=== PATIENT | male | born 1960 | race Caucasian/White ===

== ENCOUNTER → 2024-03-06 | Outpatient (CLI) | payer SELFPAY, OTHER ==
--- NOTE | 2024-03-06 07:09 | CT_ITS ---
CT RIGHT LOWER EXTREMITY WITH 3-D IMAGING CLINICAL INDICATION: Templating for right TKA TECHNIQUE: Axial CT images of the right lower extremity (including right hip, right knee, and right ankle) was performed without IV contrast material. Coronal and sagittal reformats were provided. RADIATION DOSAGE (If Supplied By Facility): CTDIvol = ( 20.10 ) mGy, DLP = ( 2981.65 ) mGycm COMPARISON: Right knee radiographs dated 02/11/2024 FINDINGS: Bones: There is minimal degenerative arthrosis of the right hip joint with tiny marginal osteophyte formation and subchondral cyst formation in the superolateral aspect of the right acetabulum. There is severe degenerative arthrosis of the medial femorotibial compartment of the right knee with [id number]-[id number], marginal osteophyte formation, subchondral sclerosis/cyst formation, and small foci of intra-articular air. There is mild degenerative arthrosis of the patellofemoral and lateral femorotibial compartments of the right knee with marginal osteophyte formation. Normal visualized right ankle. Osseous structures are intact without evidence of fracture or dislocation. No lytic or blastic osseous masses. Soft Tissues: There is a small right knee joint effusion. The deep soft tissue structures are unremarkable. The superficial soft tissues are unremarkable without evidence of edema, hematoma, or foreign body. CT/Extremity Lower without Contra IMPRESSION: Tricompartment degenerative arthrosis of the right knee joint, most severe in the medial femorotibial compartment. Small right knee joint effusion. Electronically Signed: Dawood Merchant MD at 15:52 EDT ,
== END | disposition home or self-care (01) ==
PROVIDERS: Referring Provider Orthopaedic Surgery; Visit Provider Orthopaedic Surgery
DX: M17.11 Unilateral primary osteoarthritis, right knee (principal)
CPT/HCPCS: 73700

== ENCOUNTER 2024-03-18 05:15 | Day surgery (SDC) | payer SELFPAY, OTHER ==
--- NOTE | 2024-03-06 06:57 | EKG12_ITS ---
Test Reason : PRE-OP Blood Pressure : / mmHG Vent. Rate : 065 BPM Atrial Rate : 065 BPM P-R Int : 146 ms QRS Dur : 074 ms QT Int : 378 ms P-R-T Axes : 049 029 026 degrees QTc Int : 393 ms Normal sinus rhythm Normal ECG Confirmed by PAULA MUNSON, HELLEN ([id number]), newspaper editor managing FREDY ALAN ([id number]) on 03/10/2024 10:20:06 AM Referred By: Philippe Everett Confirmed By:SARMAD MITCHELL MD
[2024-03-06 08:33] LABS: Absolute Lymphocyte Count 1.76 X10^3/uL (0.83-4.51); Absolute Neutrophil Count 1.6 X10^3/uL (2.0-7.7); Basophil# 0.03 X10^3/uL; Basophil% 0.8 % (0-1); Eosinophil# 0.09 X10^3/uL; Eosinophils% 2.3 % (0-5); Hematocrit 35.6 % (40-54); Lymphocyte # 1.76 X10^3/ul (0.83-4.51); Mean Corp Hgb Conc 33.7 g/dL (32-36); Mean Corpuscular Hgb 30.6 pg (27.0-32.0); Mean Corpuscular Volume 90.8 fL (80-94); Mean Platelet Vol. 12.9 fl (6.2-12.0); Monocyte# 0.51 X10^3/uL; Monocyte% 12.8 % (0-10); NRBC Flagged by Analyzer 0 % (0-5); Neutrophil % 39.8 % (47-70); Platelet Count 136 K/mm3 (150-450); RBC Distribution Width CV 13.5 % (11.6-14.6); RBC Distribution Width SD 45.1 fl (35.1-43.9); Red Blood Count 3.92 M/mm3 (4.6-6.2)
[2024-03-06 08:42] LABS: International Normalized Ratio 1.2; Prothrombin Time (Protime)PT. 14.7 SECONDS (11.7-14.9)
[2024-03-06 08:43] LABS: Partial Thromboplast Time 32.5 Seconds (24.1-36.2)
[2024-03-06 08:56] LABS: Anion Gap 7 (5-15); BUN 22 mg/dL (7-18); BUN/Creat Ratio 21.4 RATIO (10-20); Calcium,Total 8.7 mg/dL (8.5-10.1); Chloride 108 mmol/L (98-107); Creatinine, Serum 1.03 mg/dL (0.70-1.30); EST Glomerular Filtration Rate 77 mL/min (>60); Est Glom Filt Rate - Afr Amer 94 mL/min (>60); Glucose 98 mg/dL (74-106); Magnesium 1.9 mg/dL (1.6-2.6); Potassium 4.4 mmol/L (3.5-5.1); Sodium Level 142 mmol/L (136-145)
[2024-03-07 05:07] LABS: Fructosamine 209 umol/L (0-285)
[2024-03-18] VITALS (10 sets, daily range): BP systolic 105–174; BP diastolic 61–87; PULSE 65–80; RESP 16–92; TEMP 36.2–36.9; O2SAT 16–99; BMI 39.2
--- NOTE | 2024-03-18 | KNEE_PTH ---
PATIENT: FILIPE CEVALLOS [place] [facility] [place][id number] AGE/SX: 64/M ROOM: RE03/18/[address]: Dr. Philippe Everett DO : 1960 BED: DIS: 03/18/2024 SPEC #: [id number] RECD: 03/18/24 12:25 STATUS: MARK COLBY #: [id number] JEFFERY: 03/18/24 00:[address]: Philippe Everett DEPT: SURGICAL PATHOLOGY RECD BY: Gianfranco Rosario ENTERED: 03/18/24 12:25 SP TYPE: TOTAL KNEE OTHR DR: Maris Valdivia, SETTLEMENT WORKER-C Tissues: Knee, NOS Procedures: Decalcification bone/plaque Surgery Specimen Level IV HEADER OPERATION: ERAS, total knee replacement robotic arm assist PRE-OP DIAGNOSIS: Osteoarthritis of right knee TISSUE SUBMITTED: Right knee MICROSCOPIC DIAGNOSIS Bone and soft tissue, right knee, total knee replacement/resection: Pieces of bone with degenerative osteoarthritic changes. Fragments of fibrocartilaginous tissue with reactive changes. ADAM: 03/21/2024 MICROSCOPIC DESCRIPTION Slides are reviewed. GROSS DESCRIPTION Received is one container designated bone and soft tissue right knee. The specimen consists of multiple fragments of heller-yellow bone measuring in aggregate 11.0 x 11.0 x 3.0 cm. Also present in the specimen container are multiple fragments of yellow-white soft tissue predominantly consists of fibrocartilaginous tissue measuring in aggregate 7.5 x 4.5 x 2.0 cm. A number of bony fragments contain articular surfaces consistent with tibial plateau and femoral condyle and displaying prominent osteophyte formation, eburnation and bone erosion. Diesel Bus Mechanic sections are submitted in two cassettes as follows: 1 - soft tissue, 2 - bone after decalcification. / ADAM/ 03/18/24 TC:5 CPT: 49879, 00857
[2024-03-18 06:13] LABS: Bedside Glucose 96 mg/dL (74-106)
[2024-03-18] MEDS: Lactated Ringers 1,000 ML 15 ML IV (06:25)
[2024-03-18] MEDS: Magnesium 2 GM for ERAS IV (06:26)
[2024-03-18] MEDS: Celecoxib 200 MG Capsule 400 MG PO (06:28)
[2024-03-18] MEDS: Gabapentin 600 MG Tablet PO (06:28)
[2024-03-18] MEDS: Acetaminophen 500 MG Tablet 1000 MG PO (06:28)
[2024-03-18] MEDS: Scopolamine 1mg/72hr Patch 1 PATCH TD (06:28)
--- NOTE | 2024-03-18 07:18 | PCM.HP.BLA ---
History and Physical Date of Admission: 03/18/24 [facility] [address] [place] [address] OFFICE VISIT Date of Service: 02/22/24 MR#: [id number] Acct: [id number] Name: FILIPE CEVALLOS Rep #: [id number] : 1960 Provider: Dr. Philippe Everett DO Age/Sex: 64/M Location: [facility] [place].RAPHAEL Status: Signed Intake Vital Signs 02/06/2410:12 02/21/2411:24 Height 5 ft 10 in 5 ft 10 in Weight: 274 lb 6 oz 275 lb 4 oz BMI 39.3 39.4 Intake Visit Reasons: RIGHT KNEE Accompanied by: Is patient in pain?: Yes (when walking ) Pain scale (1-10): 8 Allergies No Known Allergies Allergy (Unverified 02/22/24 11:24) Medications divalproex 250 mg tablet,delayed release 250 mg PO BID 07/30/23 [History Confirmed 02/11/24] lisinopril 20 mg-hydrochlorothiazide 12.5 mg tablet 1 tab PO QDAY 02/11/24 [History Confirmed 02/11/24] PFSH Medical History Muscle strain of right lower leg Social History household members: spouse and children Smoking Status: Never smoker alcohol intake: never HPI RIGHT KNEE Details: This documentation accurately reflects the service provided and the decisions made by me, Dr. Philippe Everett, 02/22/24 0909. Part of today?s visit was documented by Lacey MELÉNDEZ, acting as scribe. FILIPE CEVALLOS is a 64 year old M here today for right knee pain. Patient states when he walks on it his pain level is a 8/10. Patient states his knee is worse and he states it is time to do something about his pain. Patient states he is tired of limping. Patient states its his whole knee that hurts him. Patient isn't using ice or heat. Patient takes Ibuprofen as needed for his pain. Patient had a cortisone shot one time in his knee 2-3 years ago a doctor in [place] gave it to him for free. He states that id affects ADLs especially just standing, walking, and getting up from seated position. He states that he did have an incident where he was at work and his knee locked up Ortho Exam General General: Yes no acute distress Neurologic: Yes alert and Yes oriented x3 Psychologic: Yes reasonable and appropriate Right Knee Skin/Wound: No erythema, No ecchymosis and Yes swelling Knee ROM: Yes ROM-Extension -20 to 0 (-30) and Yes ROM-Flexion 0-140 (72) Examination: Yes Med jt line tenderness and Yes Lat jt line tenderness Stability: NML: Valgus 0, NML: Valgus 30, NML: Varus 0 and NML: Varus 30 Patella Translation: 1 Apprehension with Lateral Translation: No Patella Grind: Yes KNEE: has flexion contracture has swelling in lower leg up to tibial tubercle bilaterally 2/4 pedal pulse Left Knee Patella Translation: 1 Head: Normocephalic Atraumatic Chest: symmetrical rise, non-labored breathing, no audible wheeze Abdomen: no guarding, non-rigid Supplemental Info 02/11/2024 x-ray right knee advanced medial compartment arthrosis degenerative changes noted lateral patellofemoral compartment also Coding Level of Care Code Off vis,est,level 3 Diagnoses Seizure disorder G40.909 Primary osteoarthritis of right knee M17.11 Osteoarthritis type: primary Obesity E66.9 Obesity type: due to excess calories Body mass index: BMI 39.0-39.9 Assessment and Plan Assessment and Plan (1) Seizure disorder: Status: Acute (2) Osteoarthritis of right knee: Status: Acute Qualifiers: Osteoarthritis type: primary Qualified Code(s): M17.11 - Unilateral primary osteoarthritis, right knee (3) Obesity: Status: Acute Qualifiers: Obesity type: due to excess calories Body mass index: BMI 39.0-39.9 Plan Educated the patient about the anatomy of the knee and etiology of his pain. Spoke with the patient about having knee osteoarthritis. X-rays were reviewed. There is no obvious fracture, dislocation, or lucency noted. Spoke with patient that he has bone on bone of the medial knee. Spoke with patient that he also has a significant flexion contracture of the knee which increases the risk of postoperative stiffness. Also spoke with patient about dental work before and after having a TKA. Spoke with patient that their is a concern for a TKA with the stiffness that the patient has and could potentially get worse after the surgery. Discussed with patient that his treatment options are do nothing, injections, physical therapy, or a TKA. Patient states that he would like to proceed with the left knee TKA. Risks, benefits and alternatives of surgery reviewed including but not limited to bleeding, infection, nerve, artery and/or tissue damage, fracture, VTE, mechanical feel of the knee, continued pain, stiffness and expected post-operative course. I did explain to him that after his knee replacement the goal would be for him to continue to lose weight as he is able to perform more exercises to extend the life of his knee replacement. At this point patient does wish to proceed with iovera procedure He would also like to know the lee of the total procedure for the knee replacement and the iovera He needs a medical clearance we will tentatively schedule this for March [address] does [address] a CT scan medical clearance we can tentatively schedule this for same-day surgery however we will consult with the primary care physician due to his history of seizures if they feel be more appropriate for him to spend the night 02/22/24 1224 <Electronically signed by Philippe Everett DO> Date Philippe Everett DO I have examined the patient and the H&P has been reviewed. There are no clinical changes since date of exam. Cosigner Signature: Date (if applicable)
[2024-03-18] MEDS: Cefazolin 3 GM in 0.9% Normal Saline (100mL Bag) 100 ML IV (08:03)
[2024-03-18] MEDS: TXA 1000mg in NS100 100ml (IVPB at Incision) 660 MG IV (08:08)
[2024-03-18] MEDS: dexAMETHasone 10 MG/ML Vial IV (08:13)
[2024-03-18] MEDS: TXA 1000mg in NS100 100ml (IVPB at Closure) 660 MG IV (08:53)
[2024-03-18] MEDS: Lactated Ringers 1,000 ML 125 ML IV (09:30)
[2024-03-18] MEDS: Bupivacaine 0.5% PF 10 ML VIAL (09:41)
[2024-03-18] MEDS: 0.9% Normal Saline (Pres. free 10 ML Vial (09:41)
[2024-03-18] MEDS: dexAMETHasone 4 MG/ML Vial (09:41)
[2024-03-18] MEDS: Epinephrine (1 mg/ml) 1 MG/ML VIAL (09:41)
--- NOTE | 2024-03-18 10:26 | OP.PCM_ITS ---
Operative Report Date of Procedure: 03/18/24 Preoperative diagnosis: Right knee DJD Postoperative diagnosis: Same Procedure: Right total knee arthroplasty CT guided Robotic Assisted Implant: Elizabeth triathlon press fit, femoral component size 4, tibial baseplate size 5, asymmetric patella size 38, polyethylene X3 size 9 CS Anesthesia: Spinal with adductor canal block Tourniquet time: 12 minutes at 300 mmHg Complications: None Condition: Stable to PACU Estimated blood loss: 175 cc Safety Compliance Specialist Sid Freed. My physician res habilitation assistant was a vital part of this case. He was important in appropriate retraction during the case, and protection of soft tissues during procedure. His intimate knowledge of the case and my steps aided in safe and expedient completion of the procedure as well as appropriate position of the extremity during the case. He was also vital in assisting with closure under my direct supervision. Indication for procedure: This is a 64-year-old male with with long standing degenerative joint disease of the knee and a 25 degree flexion contracture and significant varus deformity who has failed conservative treatment and wished to proceed with elective total knee arthroplasty. Risk benefits and alternatives were reviewed including; risk of bleeding, infection, nerve artery and tissue damage, continued pain, postoperative stiffness, venous thromboembolism, need for postoperative rehabilitation, mechanical feel to the knee, and expected postoperative course. The pre- operative CT and templating was performed with component sizing. Procedure: The patient was met in the preoperative holding area. The operative extremity was identified by both patient and physician and was marked. Patient was met by anesthesia. An adductor canal block was placed by anesthesia postoperatively the patient was brought back to the operating room on a wheeled cart and transferred to the operating table in the supine position. Anesthesia was started. A well-padded tourniquet was placed on the operative extremity. The patient was prepped and draped in the usual sterile fashion. A timeout was called to ensure the proper patient procedure and extremity were being contemplated. An esmarch was used to exsanguinate the extremity. The tourniquet was inflated. A 10 blade scalpel was used to make a midline incision down through the skin and subcutaneous tissue. Skin retractors placed. Bovie and Aquamantis were used to perform meticulous hemostasis. full-thickness flaps were elevated medial and lateral along the joint capsule. A deep blade scalpel was used to perform a medial parapatellar arthrotomy. The knee was brought to full extension. A bovie was used to release the soft tissues off the most proximal aspect of the medial tibial plateau, a three-quarter inch curved osteotome was also used in this process. The infrapatellar fat pad was excised. The suprapatellar fat pad was excised partially anteriorolateraly and portion the anterioromedial pad was elevated from the femur. At this point our intra- articular femoral array was placed at a 45 degree angle proximal and posterior to the medial epicondyle. femoral checkpoint was placed at this time. Our tibial array was placed greater than 1 hands breath below the incision at a 20 degree angle stab incisions were made with a 15 blade scalpel and pins were placed and attached to the tibial array , tibial checkpoint was placed in the proximal tibial metaphysis. Tourniquet was let down. At this point registration etienne were taken throughout the knee . Once the knee was registered we then tensioned the medial and lateral ligaments in extension and 90 degrees of flexion. We then used these numbers to adjust our components within parameters to balance the knee in both flexion and extension once this was done on our monitor we then proceeded with using the robotic arm to make our tibial plateau cut, anterior and posterior chamfer and distal femur cuts. we removed the cut fragments with the use of a bovie and Ale, we did use a lamina university librarian to insure we visualized and removed all posterior osteophytes and at this time also used the Aquamantis on the posterior joint capsule. we then trialed and achieved the desired plan with a well-balanced knee. we used the green probe to trisha the corresponding tibial rotation based on our CT template. Lug holes were drilled in the femur the tibia preparation was completed with the appropriate sized base plate pinned based on previous rotation trisha. An appropriate sized fin punch was used on the tibia and 4 corner drill was used for the press fit component and the patella was prepared by first using a caliper to ensure sufficient bone stock and a patellar reamer to remove the desired amount of bone. lug holes drilled for an asymmetric poly. We then brought the knee through range of motion with excellent patellar tracking. We thoroughly irrigated the knee. Trial components were removed a posterior capsular injection was preformed with our standard cocktail. In addition the aqua Mantis was also used to aid in hemostasis. Betadine rinse was allowed to sit and washed out completely. Components were press-fit into place. Aricept rinse was then used followed by several more liters of irrigation after it was allowed to sit. The joint capsule was closed with #1 Ethibond [id number] in the upper part of the arthrotomy and #1 Vicryl in the lower part of the arthrotomy. , Followed by 2-0 Vicryl in the subcutaneous tissues with leona in the skin. Arrays and checkpoints were removed prior to closure all counts were correct stab incisions were closed with a staple standard dressing in the form of Mepilex AG for the main incision and a small Mepilex over the pin holes. Thigh-high AMOR hose applied over top of dressing. Patient tolerated the procedure well and was directed to PACU in stable condition . There were no intraoperative complications.
--- NOTE | 2024-03-18 10:28 | DCINST_ITS ---
Discharge Instructions Diet Discharge Diet: No restrictions Activity Weight Bearing Status: Weight bearing as tolerated Dressing / Incision Call your doctor if you observe: Shortness of breath and Chest pain Additional Dressing/Incision Instructions:: Ice and elevate lower extremities 2 weeks while not ambulating. Ambulation is encouraged. Weight bearing as tolerated. Use assistive devise for stability. Encourage FULL knee extension and flexion 1 time EVERY time you get up and down and MULTIPLE times per day. No showering until 72 hours after surgery. Begin showering postop day #3. Remove the dressing prior to shower and gently wash with warm water and antibacterial soap then pat dry and place abdominal pad (or plain gauze) and AMOR hose over top. This is to be done daily. Do not submerge for 3 weeks. If not showering daily after the initial 72 hours then you must clean incision and change dressing daily. Do not allow animals near the incision area. Keep clean. Follow anti-coagulation recommendations as prescribed. Do not take any NSAIDs while on blood thinner. Do not take any additional narcotic pain medication other than what was prescribed on your surgery day without discussing with physician. Narcotic medication can be addictive. Do not drink alcohol while taking narcotics. Supplement narcotic prescription with acetaminophen 1000 mg 4 times a day. Start physical therapy. If you are not currently scheduled for physical therapy or you are unsure of appointment time please call office [facility] to arrange. Call Dr. Everett with any concerns. Follow Up Care Please Follow Up With: Philippe Everett DO When: 2 weeks Test Results: Test results from this visit will be discussed in further detail at your follow- up appointment, if applicable. Discharge Plan Admission Primary Reason for Your Visit: Right total knee arthroplasty Attending Provider: Philippe Everett Primary Care Provider: Maris Valdivia Discharge Orders/Prescriptions Prescriptions: New acetaminophen [acetaminophen] 500 mg tablet 1,000 mg PO Q6H PRN Qty: 100 0RF cephalexin [cephalexin] 500 mg capsule 1,000 mg PO Q8 Qty: 4 0RF Rx Instructions: take 2 tabs at 9:00 pm and 2 tabs after 5 am when you wake up Eliquis 2.5 mg tablet 2.5 mg PO BID Qty: 30 0RF Rx Instructions: Begin morning after surgery oxycodone 5 mg tablet 5 - 10 mg PO Q4H PRN (Reason: pain) 7 Days Qty: 60 0RF Continued divalproex 250 mg tablet,delayed release (DR/EC) 250 mg PO BID lisinopril-hydrochlorothiazide 20-12.5 mg tablet 1 tab PO QDAY magnesium 200 mg tablet 200 mg PO DAILY Patient Comments: pt unsure of mg/ takes 2 T daily No Action aloe vera juice 2 tbsp PO DAILY iodine (kelp) 1 tab PO DAILY factor 5 8 cap PO DAILY Disposition Disposition (needs filled in before D/C Order can be placed): Home, Self Care
--- NOTE | 2024-03-18 10:40 | RAD_ITS ---
STUDY: X-RAY - RIGHT KNEE REASON FOR EXAM: Male, 64 years old. Post op -- in PACU. TECHNIQUE: 2 views of the right knee. COMPARISON: None. FINDINGS: There are new postoperative changes related to right total knee arthroplasty with patellar resurfacing. There is a vertical staple line along the anterior aspect of the knee. There is gas in the patellofemoral joint recess and anterior soft tissues, compatible with recent surgery. The orthopedic hardware components are intact. There is no periprosthetic fracture. Normal proximal tibiofibular articulation. RAD/Knee 1 or 2 Views IMPRESSION: New postoperative changes related to right total knee arthroplasty. Electronically Signed: Dawood Merchant MD at 14:47 EDT ,
[2024-03-18] MEDS: 0.9% Normal Saline (1000mL) 1,000 ML 125 ML IV (12:58)
[2024-03-18] MEDS: Cefazolin 2 GM in 0.9% Normal Saline (100mL Bag) 100 ML IV (12:58)
== END 2024-03-18 15:00 | disposition home or self-care (01) ==
LOC: SDC 05:17 → AC 05:18
PROVIDERS: PCP Nurse Practitioner Family; Referring Provider Orthopaedic Surgery; Visit Provider Orthopaedic Surgery
PROC: 0SRC0JZ Replacement of Right Knee Joint with Synthetic Substitute, Open Approach (ICD-10-PCS; CPT 27447; principal; 2024-03-18 07:30)
DX: M17.11 Unilateral primary osteoarthritis, right knee (principal); G40.909 Epilepsy, unspecified, not intractable, without status epilepticus; E66.9 Obesity, unspecified; Z68.39 Body mass index [BMI] 39.0-39.9, adult; M21.169 Varus deformity, not elsewhere classified, unspecified knee; Z79.899 Other long term (current) drug therapy; I10 Essential (primary) hypertension
CPT/HCPCS: 27447; S2900; 01402; 64445; 36415; 73560; 80048; 82962; 82985; 83036; 83735; 85025; 85610; 85730; 86850; 86900; 86901; 87081; 88305; 88311; 93005; 97162; C1776; J7030; J7120; J2405; J3490